=== PATIENT | female | born 1960 | race Two or more races ===

== ENCOUNTER 2016-12-24 19:36 | Emergency (ER) | payer OTHER ==
[2016-12-24 20:27] VITALS: BMI 24.9
[2016-12-24] MEDS ORDERED: KETOROLAC TROMETHAMINE 60 MG/2 ML VIAL IM ONE (20:29)
[2016-12-24] MEDS ORDERED: diazePAM 2 MG TABLET PO ONE (20:29)
[2016-12-24] MEDS ORDERED: diazePAM 2 MG TABLET ONE (20:34)
[2016-12-24] MEDS ORDERED: KETOROLAC TROMETHAMINE 60 MG/2 ML VIAL ONE (20:35)
--- NOTE | 2016-12-24 20:40 | PDOC ---
History of Present Illness - General History Source: Patient, Family Exam Limitations: No Limitations - History of Present Illness Initial Comments: 12/24/16 21:40 56 y/o F with a significant PMHx of chronic back pain presents to the ED with severe back pain today. Patient reports she was on her way to physical therapy for her right hip and left shoulder when her back pain began after lifting her leg when getting. She states she has not experienced back pain this severe for over a year. She reports difficulty walking due to the pain. She states the pain radiates down her left legs to her toes. Patient reports her pain is worsened with movement. Pt deneis any urinary or bowel incontinence. She denies fever/chills, headache. Denies NVD, dysuria. Denies chest pain, SOB. PCP: Dr. Hollie Cooper <Lilliana Rg - Last Filed: 12/24/16 21:40> - General History Source: Patient Exam Limitations: No Limitations <Chris Lance - Last Filed: 12/25/16 05:39> - General Chief Complaint: Back Pain Stated Complaint: SEVERE LOWER BACK PAIN Time Seen by Provider: 12/24/16 20:10 Past History <Lilliana Rg - Last Filed: 12/24/16 21:40> - Past Medical History Thyroid Disease: Yes (hypo) - Psycho/Social/Smoking Cessation Hx Anxiety: No Suicidal Ideation: No Smoking History: Never smoked Have you smoked in the past 12 months: No Information on smoking cessation initiated: No Hx Alcohol Use: No Drug/Substance Use Hx: No Substance Use Type: None <Chris Lance - Last Filed: 12/25/16 05:39> - Past Medical History Allergies/Adverse Reactions: Allergies Allergy/AdvReac Type Severity Reaction Status Date / Time No Known Allergies Allergy Verified 12/24/16 20:24 Home Medications: Ambulatory Orders NK [No Known Home Medication] 12/24/16 Review of Systems - Review of Systems Able to Perform ROS?: Yes Comments:: 12/24/16 21:40 CONSTITUTIONAL: No reported: fever, Chills, Diaphoresis, Generalized Weakness, Malaise, Loss of Appetite HEENT: No reported: Rhinorrhea, Nasal Congestion, Throat Pain, Throat Swelling, Difficulty Swallowing, Mouth Swelling, Ear Pain, Eye Pain, Visual Changes CARDIOVASCULAR: No reported: Chest Pain, Syncope, Palpitations, Irregular Heart Rate, Lightheadedness, Peripheral Edema RESPIRATORY: No reported: Cough, Shortness of Breath, SOB with Exertion, Orthopnea, Wheezing , Stridor, Hemoptysis GASTROINTESTINAL: No reported: Abdominal Distension, Nausea, Vomiting, Diarrhea, Constipation, Melena, Hematochezia GENITOURINARY: No reported: Dysuria, Urgency, Hesitancy, Flank Pain, Genital Pain MUSCULOSKELETAL: (+) low back pain No reported: Myalgia, Arthralgia, Joint Swelling, Neck Pain SKIN: No reported: Rash, Itching, Pallor HEMEATOLOGIC/IMMUNOLOGIC: No reported: Easy Bleeding, Easy Bruising, Lymphadenopathy, Frequent infections ENDOCRINE: No reported: Unexplained Weight Gain, Unexplained Weight Loss, Heat Intolerance , Cold Intolerance NEUROLOGIC: No reported: Headache, Focal Weakness, Paresthesias, Vertigo, Lightheadedness, Unsteady Gait, Seizure, Mental Status Changes, Incontinence PSYCHIATRIC: No reported: Anxiety, Depression <Lilliana Rg A - Last Filed: 12/24/16 21:40> *Physical Exam - Vital Signs Last Vital Signs Temp Pulse Resp BP Pulse Ox 98.3 F 67 14 113/73 99 12/24/16 20:24 12/24/16 20:24 12/24/16 20:24 12/24/16 20:24 12/24/16 20:24 - Physical Exam Comments: 12/24/16 21:41 GENERAL: The patient is awake, alert, and fully oriented, Nontoxic - in no acute distress. NECK: Normal range of motion, supple, no cervical tenderness LUNGS: Breath sounds equal, clear to auscultation bilaterally. No wheezes, no rhonchi, no rales. HEART: Regular rate and rhythm, without murmur, rub or gallop. ABDOMEN: Soft, nontender, normoactive bowel sounds. No guarding, no rebound.No CVA tenderness EXTREMITIES: hip flexion limited due to pain, sensation intact and symemtric in LE b/l. BACK: no thoracic tenderness, Diffuse back tenderness in the lumbar region, neg slr, NEUROLOGICAL: No facial asymmetry, Normal speech PSYCH: Normal mood, normal affect. SKIN: Warm, Dry, normal turgor <Lilliana Rg - Last Filed: 12/24/16 21:40> - Vital Signs Last Vital Signs Temp Pulse Resp BP Pulse Ox 98.3 F 67 14 113/73 99 12/24/16 20:24 12/24/16 20:24 12/24/16 20:24 12/24/16 20:24 12/24/16 20:24 <Chris Lance - Last Filed: 12/25/16 05:39> ED Treatment Course - Medications Given in the ED: ED Medications Discontinued Medications Generic Name Dose Route Start Last Admin Trade Name Jemal PRN Reason Stop Dose Admin Diazepam 2 mg 12/24/16 20:29 12/24/16 20:40 Valium - PO 12/24/16 20:30 2 mg ONCE ONE Administration Ketorolac Tromethamine 60 mg 12/24/16 20:29 12/24/16 20:40 Toradol Injection - IM 12/24/16 20:30 60 mg ONCE ONE Administration <Lilliana Rg A - Last Filed: 12/24/16 21:40> - RADIOLOGY Radiology Studies Ordered: Category Date Time Status SPINE-LUMBAR SACRAL [RAD] Stat Radiology 12/24/16 20:29 Ordered <Chris Lance - Last Filed: 12/25/16 05:39> Medical Decision Making - Medical Decision Making 12/24/16 20:38 56y F hx of atraumatic back pain, onset after she raised her L leg to put her pants on. pain is worse in the L lower back and pt endorsed some radiation to LE with tingling in the toes. No urinary or bowel incontinence or symptoms. no weakness. on exam pt appears uncomfortable, with diffuse tenderness in the L and midline lower back, neg slr, n/v intact suspect back strain will give toradol and valium will ck xray to r/o fx 12/24/16 22:50 pt feelign improved ambulating around without distress her xray shows possible signs of compression fx on L4 however on repalpation pt has no tenderness. will dc with pmd fu return precautions were discussed family and pt comfortable with plan I discussed the physical exam findings, ancillary test results and final diagnoses with the patient. I answered all of the patient's questions. The patient was satisfied with the care received and felt comfortable with the discharge plan and treatment plan. The patient will call their primary care physician within 24 hours to arrange follow-up and will return to the Emergency Department with any new, persistent or worsening symptoms. 12/25/16 05:39 A portion of this note was documented by scribe services under my direction. I have reviewed the details of the note, within reason, and agree with the documentation with the following case summary and management plan written by me <Chris Lance - Last Filed: 12/25/16 05:39> *DC/Admit/Observation/Transfer - Attestations Scribe Attestion: 12/24/16 21:41 Documentation prepared by Lilliana Rg, acting as general medical practitioner for Chris Lance MD. <Lilliana Rg - Last Filed: 12/24/16 21:40> - Discharge Dispostion Admit: No <Chris Lance - Last Filed: 12/25/16 05:39> Diagnosis at time of Disposition: Back pain Qualifiers: Back pain location: low back pain Chronicity: acute Back pain laterality: left Sciatica presence: with sciatica Sciatica laterality: sciatica of left side Qualified Code(s): M54.42 - Lumbago with sciatica, left side - Discharge Dispostion Disposition: HOME Condition at time of disposition: Improved - Referrals Referrals: Hollie Cooper MD [Primary Care Provider] - - Patient Instructions Printed Discharge Instructions: DI for Low Back Pain Additional Instructions: Return to the emergency department immediately with ANY new, persistent or worsening symptoms including numbness, tingling, weakness, fevers, worsening pain or any other concerns. Take ibuprofen (400mg)/tylenol(650mg) every 6 hours for 2 days. Apply heat to your sore muscles. You MUST call and follow up with your doctor in 2-3 days for further evaluation of your symptoms. Your emergency department visit is not complete without a followup with your doctor for reevaluation.. Results were discussed with you. Please make sure your doctor reviews the results of your emergency evaluation. Print Language: [place]
[2016-12-24 23:54] VITALS: BP 101/69; PULSE 76; TEMP 97.7
== END 2016-12-24 23:55 | disposition home or self-care (01) ==
LOC: JER 19:36
PROC: 3E0233Z Introduction of Anti-inflammatory into Muscle, Percutaneous Approach (ICD-10-PCS; principal; 2016-12-24)
DX: M54.42 Lumbago with sciatica, left side (principal)
CPT/HCPCS: 72100-TC; 96372; 99281-25

== ENCOUNTER 2017-06-03 10:49 | Emergency (ER) | payer OTHER ==
[2017-06-03 10:53] VITALS: BP 116/84; PULSE 88; TEMP 97.9; BMI 24.9
--- NOTE | 2017-06-03 11:34 | PDOC ---
History of Present Illness - General History Source: Patient Exam Limitations: No Limitations - History of Present Illness Initial Comments: 06/03/17 13:29 The patient is a 56 year old female with a significant PMH of chronic back pain who presents to the emergency department with 3 episodes of L sided burning chest pain beginning approximately 4 hours ago. She reports experiencing a sudden onset of an epigastric burning sensation with some radiation to the upper back in between the scapula at 8:30AM, 10/10 in severity, which resolved in 10 minutes without intervention. She reports feeling a second onset at about 9:00AM, 7/10 in severity which resolved in another 10 minutes. She reports her last episode was at 10:30AM about 30 minutes after eating, 4/10 in severity. She now presents with mild left-sided chest pain. She denies any alleviating factors. She denies pleuritic nature to pain, denies recent travel or immobilization. No hx similar sxs. The patient denies shortness of breath, headache and dizziness. Denies fever, chills, nausea, vomit, diarrhea and constipation. Denies dysuria, frequency, urgency and hematuria. Allergies: NKA Past surgical history: None reported. Social history: No reported cigarette, alcohol, or drug use. PCP: Dr. Cooper <Javier Lanza - Last Filed: 06/03/17 13:30> <Jp Quintero - Last Filed: 06/03/17 14:49> - General Chief Complaint: Chest Pain Stated Complaint: CHEST PAIN Time Seen by Provider: 06/03/17 11:18 Past History <Javier Lanza - Last Filed: 06/03/17 13:30> - Past Medical History COPD: No Thyroid Disease: Yes (hypo) - Suicide/Smoking/Psychosocial Hx Smoking History: Never smoked Have you smoked in the past 12 months: No Hx Alcohol Use: No Drug/Substance Use Hx: No Substance Use Type: None <Jp Quintero - Last Filed: 06/03/17 14:49> - Past Medical History Allergies/Adverse Reactions: Allergies Allergy/AdvReac Type Severity Reaction Status Date / Time No Known Allergies Allergy Verified 06/03/17 10:53 Home Medications: Ambulatory Orders NK [No Known Home Medication] 12/24/16 Review of Systems - Review of Systems Able to Perform ROS?: Yes Comments:: 06/03/17 13:29 GENERAL/CONSTITUTIONAL: No fever or chills. No weakness. HEAD, EYES, EARS, NOSE AND THROAT: No change in vision. No ear pain or discharge. No sore throat. GASTROINTESTINAL: (+) Epigastric pain. No nausea, vomiting, diarrhea or constipation. GENITOURINARY: No dysuria, frequency, or change in urination. CARDIOVASCULAR: (+) Mild left-sided chest pain. No shortness of breath. RESPIRATORY: No cough, wheezing, or hemoptysis. MUSCULOSKELETAL: No joint or muscle swelling or pain. No neck or back pain. SKIN: No rash NEUROLOGIC: No headache, vertigo, loss of consciousness, or change in strength/ sensation. ENDOCRINE: No increased thirst. No abnormal weight change. HEMATOLOGIC/LYMPHATIC: No anemia, easy bleeding, or history of blood clots. ALLERGIC/IMMUNOLOGIC: No hives or skin allergy. <Javier Lanza - Last Filed: 06/03/17 13:30> *Physical Exam - Vital Signs Last Vital Signs Temp Pulse Resp BP Pulse Ox 97.9 F 88 18 116/84 97 06/03/17 10:50 06/03/17 10:50 06/03/17 10:50 06/03/17 10:50 06/03/17 10:50 - Physical Exam Comments: 06/03/17 13:29 GENERAL: Awake, alert, and fully oriented, in no acute distress HEAD: No signs of trauma EYES: PERRLA, EOMI, sclera anicteric, conjunctiva clear ENT: Auricles normal inspection, hearing grossly normal, nares patent, oropharynx clear without exudates. Moist mucosa NECK: Normal ROM, supple, no lymphadenopathy, JVD, or masses LUNGS: Breath sounds equal, clear to auscultation bilaterally. No wheezes, and no crackles HEART: Regular rate and rhythm, normal S1 and S2, no murmurs, rubs or gallops ABDOMEN: Soft, nontender, normoactive bowel sounds. No guarding, no rebound. No masses EXTREMITIES: Normal range of motion, no edema. No clubbing or cyanosis. No cords , erythema, or tenderness BACK: No midline spinal tenderness in cervical/thoracic/lumbar region NEUROLOGICAL: Normal speech, cranial nerves intact, negative pronator drift, 5/ 5 strength in all 4 extremities, normal sensation to light touch in all 4 extremities, normal cerebellar exam, normal gait, normal reflexes and tone SKIN: Warm, Dry, normal turgor, no rashes or lesions noted. <Javier Lanza - Last Filed: 06/03/17 13:30> - Vital Signs Last Vital Signs Temp Pulse Resp BP Pulse Ox 97.9 F 88 18 116/84 97 06/03/17 10:50 06/03/17 10:50 06/03/17 10:50 06/03/17 10:50 06/03/17 10:50 <Jp Quintero - Last Filed: 06/03/17 14:49> Heart Score/ECG Review - History History: Moderately suspicious - Electrocardiogram EKG: Normal - Age Age: 45-65 - Risk Factors Risk Factors Heart Score: Yes Positive family hx of cardiac disease Based on the list above the patient has:: 1-2 risk factors - Troponin Troponin: </= normal limit - Score Heart Score - Total: 3 #1 06/03/17 13:01 Twelve-lead EKG was performed and reviewed by me. Normal sinus rhythm, rate 88. Normal axis and intervals. No ST elevations or T-wave inversions. <Jp Quintero - Last Filed: 06/03/17 14:49> ED Treatment Course - LABORATORY CBC & Chemistry Diagram: 06/03/17 12:36 06/03/17 13:12 - ADDITIONAL ORDERS Additional order review: Laboratory Results 06/03/17 06/03/17 12:42 12:42 B-Natriuretic Peptide Cancelled Urine Color Straw Urine Appearance Clear Urine pH 5.0 Ur Specific [place] 1.013 Urine Protein Negative Urine Glucose (UA) Negative Urine Ketones Negative Urine Blood 1+ H Urine Nitrite Negative Urine Bilirubin Negative Urine Urobilinogen Negative Ur Leukocyte Esterase Negative Urine WBC (Auto) <1 Urine RBC (Auto) 1 Ur Epithelial Cells Rare 06/03/17 12:36 RBC 4.70 MCV 75.4 L MCHC 32.5 RDW 14.3 MPV 9.2 Neutrophils % 47.4 D Lymphocytes % 40.2 H D Monocytes % 10.7 H Eosinophils % 1.1 D Basophils % 0.6 <Javier Lanza - Last Filed: 06/03/17 13:30> - LABORATORY CBC & Chemistry Diagram: 06/03/17 12:36 06/03/17 13:12 <Jp Quintero - Last Filed: 06/03/17 14:49> Medical Decision Making - Medical Decision Making 06/03/17 13:14 56-year-old female with no significant past medical history presents with 3 episodes of left sided epigastric burning pain that self resolved, however now has persistent mild left-sided chest pain. Vitals are within normal limits. Exam within normal limits. Differential includes but not limited to ACS versus gastritis versus pancreatitis versus cholecystitis. We'll obtain bloodwork, CXR , treat with Pepcid and reassess. The patient's heart score is and thus we'll obtain two troponins 4 hours apart 06/03/17 14:38 Patient's blood work appears within normal limits including normal troponin. Chest x-ray is within normal limits with normal mediastinum and no consolidations or pathology. Plan was to check another troponin and consider a CTA of the chest although patient no longer wants to wait and states she feels much better and is asymptomatic. I discussed with the patient that her workup was not complete and if she were to leave at this time she would be leaving AGAINST MEDICAL ADVICE. The patient is clinically sober, free from distracting injury, appears to have intact insight and judgment and reason and in my opinion has the capacity to make decisions. The patient presents with her son to the ED with chest pain. I have explained that I am concerned that this may represent a heart attack, aortic dissection, pneumonia, gastritis, PUD, cholecystitis, or pancreatitis; they have verbalized an understanding of my concerns. I have told the patient that while their labs were normal, they could still have heart attack, aortic dissection, pneumonia, gastritis, PUD, cholecystitis, or pancreatitis. I have discussed the need for another troponin and possible a CT scan to get more information about potential causes of the patients chest pain. I have told the patient that if they leave and have pain again, they could get much worse, could become critically ill, and could possibly become disabled or . I have offered to give the patient more pain medication. I have asked them to stay in the hospital for serial troponin tests. I have discussed these concerns with the patients son who is at the bedside and he is unable to convince her to stay for further evaluation. The patient is not willing to undergo further testing or imaging. She is unwilling to stay overnight for monitoring. She is refusing any further care and is leaving against medical advice. I am unable to convince the patient to stay, I have asked her to return as soon as possible to complete their evaluation. I have put out a call to their PMD Dr. Cooper, am awaiting a call back. I have answered all their questions. <Jp Quintero - Last Filed: 06/03/17 14:49> *DC/Admit/Observation/Transfer - Attestations Scribe Attestion: 06/03/17 13:29 Documentation prepared by Javier Lanza, acting as nuclear medical technologist for Jp Quintero MD. <Javier Lanza - Last Filed: 06/03/17 13:30> - Attestations Physician Attestion: 06/03/17 14:49 I, Dr. Jp Quintero MD, attest that this document has been prepared under my direction and personally reviewed by me in its entirety. I further attest, that it accurately reflects all work, treatment, procedures and medical decision -making performed by me. <Jp Quintero - Last Filed: 06/03/17 14:49> Diagnosis at time of Disposition: AMA - Signed out against medical advice - Discharge Dispostion Disposition: AGAINST MEDICAL ADVICE - Referrals Referrals: Hollie Cooper MD [Primary Care Provider] - - Patient Instructions Additional Instructions: Return to the emergency department as soon as possible to complete your evaluation. You are leaving the emergency department AGAINST MEDICAL ADVICE. By doing so, this puts you at risk for recurrent chest pain, heart attack, permanent disability, or even . Follow-up with your primary care physician Dr. Cooper as soon as possible.
[2017-06-03 12:57] LABS: BASO % 0.6 % (0-2.0); EOS % 1.1 % (0-4.5); HEMATOCRIT 35.4 % (32.4-45.2); HEMOGLOBIN 11.5 GM/dL (10.7-15.3); LYMPH % 40.2 % (8-40); MCH 24.5 pg (25.7-33.7); MCHC 32.5 g/dl (32.0-36.0); MEAN CELL VOLUME 75.4 fl (80-96); MEAN PLT VOLUME 9.2 fl (7.5-11.1); MONO % 10.7 % (3.8-10.2); NEUT % 47.4 % (42.8-82.8); PLATELET COUNT 229 K/MM3 (134-434); RDW 14.3 % (11.6-15.6); WHITE BLOOD COUNT 5.5 K/mm3 (4.0-10.0)
[2017-06-03 13:15] LABS: URINE APPEARANCE CLEAR; URINE BILIRUBIN NEGATIVE (NEGATIVE); URINE BLOOD 1+ (NEGATIVE); URINE COLOR STRAW; URINE GLUCOSE (UA) NEGATIVE (NEGATIVE); URINE KETONE NEGATIVE (NEGATIVE); URINE LEUK ESTERASE NEGATIVE (NEGATIVE); URINE NITRITE NEGATIVE (NEGATIVE); URINE PROTEIN NEGATIVE (NEGATIVE); URINE UROBILINOGEN NEGATIVE mg/dL (0.2-1.0)
[2017-06-03 13:21] LABS: EPI CELLS RARE /HPF (FEW)
[2017-06-03] MEDS ORDERED: FAMOTIDINE 20 MG/50 ML IVPB 20 MG/50 ML MG IVPB ONE (13:30)
[2017-06-03 13:50] LABS: ALBUMIN 3.6 g/dl (3.4-5.0); ANION GAP 6 (8-16); BLOOD UREA NITROGEN 18 mg/dL (7-18); CALCIUM 8.9 mg/dL (8.5-10.1); CHLORIDE 105 mmol/L (98-107); CO2 28 mmol/L (21-32); CREATININE 0.7 mg/dL (0.55-1.02); GLUCOSE,RANDOM 136 mg/dL (74-106); POTASSIUM 4.1 mmol/L (3.5-5.1); SGOT/AST 15 U/L (15-37); SGPT/ALT 28 U/L (12-78); SODIUM 139 mmol/L (136-145)
[2017-06-03 13:53] LABS: ALK PHOS 61 U/L (45-117); BILIRUBIN,TOTAL 0.3 mg/dL (0.2-1.0); N-TERMINAL BNP 52.03 pg/ml (5-125); TOT PROT 7.8 g/dl (6.4-8.2)
[2017-06-03 14:01] LABS: LIPASE 233 U/L (73-393)
--- NOTE | 2017-06-03 23:12 | EKG ---
Test Reason : Blood Pressure : / mmHG Vent. Rate : 088 BPM Atrial Rate : 088 BPM P-R Int : 166 ms QRS Dur : 084 ms QT Int : 368 ms P-R-T Axes : 064 064 051 degrees QTc Int : 445 ms NORMAL SINUS RHYTHM NORMAL ECG NO PREVIOUS ECGS AVAILABLE Confirmed by HERB WEBER MD ([id number]) on 06/03/2017 11:12:32 PM Referred By: Confirmed By:HERB WEBER MD
== END 2017-06-03 14:30 | disposition left against medical advice (07) ==
LOC: JER 10:49
PROC: 3E033GC Introduction of Other Therapeutic Substance into Peripheral Vein, Percutaneous Approach (ICD-10-PCS; principal; 2017-06-03)
DX: R07.89 Other chest pain (principal); E03.9 Hypothyroidism, unspecified
CPT/HCPCS: 36415; 71046-TC-FY; 80053; 81003; 81015; 83690; 83735; 83880; 84484; 85025; 87086; 93005; 93010; 96365; 99283-25

== ENCOUNTER 2018-08-20 06:09 | Day surgery (SDC) | payer OTHER ==
[2018-08-13 13:01] VITALS: BMI 24.9
[2018-08-20] MEDS ORDERED: GUM MASTIC/STORAX/MSAL/ALCOHOL 1 DRP DROPSBTL MC ONE (07:21)
[2018-08-20] MEDS ORDERED: LIDOCAINE HCL 2% (20ML MULTI-DOSE VIAL) NR ONE (07:21)
[2018-08-20] MEDS ORDERED: MIDAZOLAM HCL 2 MG/2 ML SINGLE DOSE VIAL ONE (07:23)
[2018-08-20] MEDS ORDERED: PROPOFOL 20 ML ONE ×3 (07:24)
[2018-08-20] MEDS ORDERED: SUCCINYLCHOLINE CHLORIDE 200 MG/10 ML VIAL ONE (07:25)
[2018-08-20] MEDS ORDERED: LIDOCAINE HCL/PF 2% SDV 5ML VIAL ONE (07:25)
[2018-08-20] MEDS ORDERED: ONDANSETRON 4 MG/2 ML VIAL IVPUSH PRN (07:55)
[2018-08-20] MEDS ORDERED: oxyCODONE HCL 5 MG TABLET PO PRN ×2 (07:55)
[2018-08-20] MEDS ORDERED: LACTATED RINGERS SOLUTION 1,000 ML IV SCH (08:00)
[2018-08-20] MEDS ORDERED: ONDANSETRON 4 MG/2 ML VIAL ONE (08:14)
[2018-08-20 08:58] VITALS: TEMP 97.4
[2018-08-20 09:39] VITALS: BP 108/76; PULSE 71
--- NOTE | 2018-08-21 11:14 | OP ---
DATE OF OPERATION: 08/20/2018 PREOPERATIVE DIAGNOSIS: Left carpal tunnel syndrome. POSTOPERATIVE DIAGNOSIS: Left carpal tunnel syndrome. OPERATIVE PROCEDURE: Left carpal tunnel release. SURGEON: Zev Genao MD ANESTHESIA: Local sedation. COMPLICATIONS: None. ESTIMATED BLOOD LOSS: Minimal. INDICATION FOR PROCEDURE: The patient is a 57-year-old with the above findings indicated for operative treatment. Risks, benefits, and alternatives were discussed with patient at length. Proper informed consent was obtained. DESCRIPTION OF PROCEDURE: After proper identification of the patient and the correct operative site, patient was brought to the operating room and placed supine on the operating table. All bony prominences were well padded. Sedation and local anesthesia were given. Left upper extremity was prepped and draped in usual sterile fashion. A well-padded tourniquet was placed over the sterile prep. Esmarch bandage was used to exsanguinate left upper extremity. Tourniquet was inflated to 250 mmHg. A longitudinal incision was made over the proximal aspect of the palm. Incision was taken sharply through skin with blunt and sharp dissection through subcutaneous tissue. Palmar fascia was divided longitudinally. Transverse carpal ligament was divided longitudinally along with the distal 4 cm of the antebrachial fascia under direct visualization with loupe magnification. This provided complete release of the median nerve of the wrist. Wound was irrigated with saline and repaired with 5-0 fast absorbing plain gut suture. Sterile dressings were applied. Patient was brought to the recovery room in stable condition. Patient tolerated the procedure well. Marielena MERCADO/[id number]
== END 2018-08-20 09:30 | disposition home or self-care (01) ==
LOC: FASU 06:09
PROVIDERS: ATTEND Orthopaedic Surgery Hand Surgery
PROC: 01N50ZZ Release Median Nerve, Open Approach (ICD-10-PCS; principal; 2018-08-20 08:18)
DX: G56.02 Carpal tunnel syndrome, left upper limb (principal)

== ENCOUNTER 2023-01-10 10:42 | Observation (INO) | payer OTHER ==
[2023-01-10 10:53] VITALS: BMI 27.4
[2023-01-10 13:35] LABS: BASO % 0.8 % (0-2.0); EOS % 1.2 % (0-4.5); HEMATOCRIT 35.8 % (32.4-45.2); HEMOGLOBIN 12.1 GM/dL (10.7-15.3); LYMPH % 48.9 % (8-40); MCH 25.1 pg (25.7-33.7); MCHC 33.7 g/dl (32.0-36.0); MEAN CELL VOLUME 74.3 fl (80-96); MEAN PLT VOLUME 9.4 fl (7.5-11.1); MONO % 7.8 % (3.8-10.2); NEUT % 41.3 % (42.8-82.8); PLATELET COUNT 249 10^3/uL (134-434); RBC 4.82 M/mm3 (3.60-5.2); RDW 14.3 % (11.6-15.6); WHITE BLOOD COUNT 5.1 K/mm3 (4.0-10.0)
[2023-01-10 13:41] LABS: INR 1.04 (0.83-1.09); PROTHROMBIN TIME (PATIENT) 12.1 SEC (9.7-13.0)
[2023-01-10 13:44] LABS: ACTIVATED PTT 31.2 SECONDS (25.2-36.5)
[2023-01-10 14:04] LABS: POTASSIUM 4.4 mmol/L (3.5-5.1)
[2023-01-10 14:06] LABS: CALCIUM 8.9 mg/dL (8.5-10.1)
[2023-01-10 14:07] LABS: ALBUMIN 3.7 g/dl (3.4-5.0); BLOOD UREA NITROGEN 13.8 mg/dL (7-18)
[2023-01-10 14:10] LABS: CREATININE 0.7 mg/dL (0.55-1.3)
[2023-01-10 14:11] LABS: BILIRUBIN,TOTAL 0.4 mg/dL (0.2-1); TOT PROT 7.5 g/dl (6.4-8.2)
[2023-01-10] MEDS ORDERED: ASPIRIN 325 MG TABLET PO ONE (16:20)
[2023-01-10] MEDS ORDERED: FAMOTIDINE 20 MG/50 ML IVPB 20 MG/50 ML MG IVPB ONE ×2 (16:25→16:56)
[2023-01-10] MEDS ORDERED: ACETAMINOPHEN 1000 MG/100 ML BAG IVPB ONE (16:25)
[2023-01-10] MEDS ORDERED: ASPIRIN 325 MG TABLET ONE (16:55)
[2023-01-10] MEDS ORDERED: ACETAMINOPHEN INJECTION 100 ML IVPB ONE (16:55)
[2023-01-11 08:00] LABS: BASO % 0.7 % (0-2.0); EOS % 2.5 % (0-4.5); HEMATOCRIT 35.5 % (32.4-45.2); HEMOGLOBIN 12.2 GM/dL (10.7-15.3); LYMPH % 46.1 % (8-40); MCH 25.4 pg (25.7-33.7); MCHC 34.3 g/dl (32.0-36.0); MEAN CELL VOLUME 74.2 fl (80-96); MEAN PLT VOLUME 9.4 fl (7.5-11.1); MONO % 8.4 % (3.8-10.2); NEUT % 42.3 % (42.8-82.8); PLATELET COUNT 240 10^3/uL (134-434); RBC 4.79 M/mm3 (3.60-5.2); RDW 14.7 % (11.6-15.6)
[2023-01-11 08:36] LABS: POTASSIUM 4.1 mmol/L (3.5-5.1)
[2023-01-11 08:41] LABS: CALCIUM 8.9 mg/dL (8.5-10.1)
[2023-01-11 08:42] LABS: BLOOD UREA NITROGEN 11.8 mg/dL (7-18); MAGNESIUM 1.9 mg/dL (1.8-2.4)
[2023-01-11 08:44] LABS: CREATININE 0.8 mg/dL (0.55-1.3)
[2023-01-11 09:51] LABS: PH,URINE 5.5 (5.0-8.0); URINE APPEARANCE CLEAR; URINE BILIRUBIN NEGATIVE (NEGATIVE); URINE COLOR YELLOW; URINE GLUCOSE (UA) NEGATIVE (NEGATIVE); URINE KETONE NEGATIVE (NEGATIVE); URINE LEUK ESTERASE NEGATIVE (NEGATIVE); URINE NITRITE NEGATIVE (NEGATIVE); URINE PROTEIN NEGATIVE (NEGATIVE); URINE UROBILINOGEN 0.2 mg/dL (0.2-1.0)
[2023-01-11] MEDS ORDERED: ASPIRIN 81 MG CHEWABLE TABLETS PO SCH (10:00)
[2023-01-11 11:34] VITALS: BP 121/75; PULSE 64; RESP 24; TEMP 97.8
[2023-01-11] MEDS ORDERED: ROSUVASTATIN CA 10 MG TABLET PO SCH (22:00)
== END 2023-01-11 13:49 | disposition home or self-care (01) ==
LOC: JER 10:42 → JERBED 17:39 → J4W 22:22
PROVIDERS: ADMIT Internal Medicine; ATTEND Family Medicine
PROC: 3E033NZ Introduction of Analgesics, Hypnotics, Sedatives into Peripheral Vein, Percutaneous Approach (ICD-10-PCS; principal; 2023-01-10)
PROC: 3E033GC Introduction of Other Therapeutic Substance into Peripheral Vein, Percutaneous Approach (ICD-10-PCS; 2023-01-10)
DX: I24.9 Acute ischemic heart disease, unspecified (principal); G89.29 Other chronic pain; R00.2 Palpitations; M54.50 Low back pain, unspecified; E78.5 Hyperlipidemia, unspecified
CPT/HCPCS: 36415; 70450-TC; 71046-TC-FY; 71275-TC; 80048; 80053; 80061; 81003; 83690; 83735; 84443; 84484; 85025; 85379; 85610; 85730; 87086; 93005; 93010; 93306-TC; 93351; 96365; 96375; 99285-25; G0378; Q9967